=== PATIENT | male | born 1945 | race Hispanic/Latino ===

== ENCOUNTER 2017-07-09 21:22 | Inpatient (IN) | payer MEDICARE ==
[~2017-07-09] VITALS: Ht 180.3 cm; Wt 98.1 kg
[2017-07-09] MEDS ORDERED: BACTRIM DS TAB1 EACH PO (22:37)
[2017-07-09] MEDS ORDERED: GLIPIZIDE5 MG PO (22:37)
[2017-07-09] MEDS ORDERED: CLINDAMYCIN HC150 MG PO (22:37)
[2017-07-09] MEDS ORDERED: METFORMIN HCL500 MG PO (22:37)
[2017-07-09] MEDS ORDERED: CEFAZOLIN SOD 1 GM in WATER STERILE 10ML VIAL 10 ML IV ONE (23:45)
[2017-07-10] VITALS (9 sets, daily range): BP systolic 121–149; BP diastolic 62–79
[2017-07-10] MEDS ORDERED: ACETAMINOPHEN 325 MG TAB PO PRN (00:15)
[2017-07-10] MEDS ORDERED: ACETAMINOPHEN 325 MG TAB PO ONE (00:15)
[2017-07-10] MEDS ORDERED: ONDANSETRON HCL INJ 2 MG/ML VIAL IV PRN (00:15)
[2017-07-10] MEDS: SODIUM CHLORIDE 0.9% 1000ML 1,000 ML IV SCH ×2 (02:32)
[2017-07-10] MEDS: PIPERACILLIN/TAZO 2.25 GM 50 ML IV SCH ×3 (06:08→21:56)
[2017-07-10] MEDS ORDERED: VANCOMYCIN 1GM/NS 250 ML 250 ML IV ONE (09:30)
[2017-07-10 09:55] LABS: BASOPHILS % 0.8 % (0.0-1.0); EOSINOPHILS # (AUTO) 0.2 (0.0-0.4); HEMATOCRIT 33.9 % (38.2-49.6); HEMOGLOBIN 11.3 g/dL (14.0-18.0); LYMPHOCYTES # (AUTO) 1.1 (1.0-3.2); LYMPHOCYTES % 22.8 % (18.0-39.1); MEAN CORPUSCULAR HEMOGLOBIN 29.6 pg (28-32); MEAN CORPUSCULAR HGB CONC 33.3 g/dL (31-35); MEAN CORPUSCULAR VOLUME 88.7 fL (81-99); MONOCYTES # (AUTO) 0.6 (0.2-0.8); MONOCYTES % 12.2 % (4.4-11.3); PLATELET COUNT 156 x10e3/uL (140-360); RED BLOOD COUNT 3.82 x10e6/uL (4.3-5.7); RED CELL DISTRIBUTION WIDTH 13.4 % (11.7-14.4)
[2017-07-10] MEDS ORDERED: LISINOPRIL 10 MG TAB PO SCH (10:00)
[2017-07-10] MEDS ORDERED: LISINOPRIL10 MG PO (10:02)
[2017-07-10 10:10] LABS: ALBUMIN 3.5 g/dL (3.5-5.0); ALBUMIN/GLOBULIN RATIO 1.1 (0.8-2.0); ANION GAP 14.7 mmol/L (8-16); CALCIUM 9.1 mg/dL (8.4-10.2); CREATININE, SERUM 2.29 mg/dL (0.72-1.25)
[2017-07-10 10:11] LABS: POTASSIUM 5.7 mmol/L (3.5-5.1)
--- NOTE | 2017-07-10 10:40 | History and Physical ---
He is a 72-year-old male patient of mine with a history of diabetes mellitus he was told because of noncompliance. Had a fall off a ladder 2 weeks ago, and he stabbed his left lower anterior tibia. The patient was seen in the office. The patient was started on Bactrim and Mupirocin cream. The patient had no significant improvement so clindamycin was added and Mupirocin was changed to Povidine Iodine dressing because of the local infection. That was done 2 days ago. Apparently, the patient did not improve. Then because of the pain came to the emergency room at the [facility] ER. Subsequently, the patient was found to have a high creatinine of 2.7. The patient was admitted. PAST MEDICAL HISTORY: Diabetes mellitus, hypertension. PAST SURGICAL HISTORY: Left ankle surgery and hardware in place, appendectomy. REVIEW OF SYSTEMS: Left lower leg pain. SOCIAL HISTORY: Former smoker. Denies using alcohol. FAMILY HISTORY: Diabetes mellitus. MEDICATIONS: The patient was on glimepiride, metformin, Azactam, and clinda. ALLERGIES: NO KNOWN DRUG ALLERGIES. PHYSICAL EXAMINATION GENERAL: He is an elderly male patient lying in bed. VITALS: Temperature 97, pulse rate 74, blood pressure 140/70, respirations 20. HEENT: Normocephalic and atraumatic. No JVD. No adenopathy. LUNGS: Bilateral equal fair air entry. No rales. No rhonchi. HEART: S1 and S2 regular. No murmurs. No gallops. ABDOMEN: Soft. Bowel sounds are present. NEUROLOGICAL: No focal neurological deficit. EXTREMITIES: On the left lower extremity, the patient has leg ulcer with eschar, surrounding erythema and tenderness. The area is around 5 cm. LABORATORY EXAMINATION: The patient's creatinine was 3.1. Repeat was 2.7, potassium 5.3. CBC normal. X-ray of the left tibia and fibula negative. IMPRESSION AND DIAGNOSES 1. Left lower leg cellulitis. 2. Acute renal failure. 3. Diabetes mellitus. 4. Left lower leg traumatic ulcer, which is infected. PLAN: The patient will be admitted with the above diagnoses. Will give the patient IV fluids and stop Bactrim, clindamycin and metformin for the renal failure. Give the patient IV Zosyn and dose of vancomycin. Will obtain wound culture and get wound care. Will obtain ID and nephrology consultation. Job#: [id number] RI
[2017-07-10] MEDS ORDERED: LACTULOSE SYRUP 20 GM/30 ML UDC PO ONE (14:31)
[2017-07-10] MEDS ORDERED: SOD POLYSTYRENE SULFONATE SUSP 15 GM/60 ML BTL PO ONE (14:31)
[2017-07-10] MEDS ORDERED: ONDANSETRON HCL 4 MG ORAL DISINTEGRATING TAB PO PRN (14:45)
--- NOTE | 2017-07-10 15:16 | Consultation ---
DATE OF CONSULTATION: July 10, 2017 RENAL CONSULT HISTORY OF PRESENT ILLNESS: History predominantly from chart, electronic records. This is a pleasant 72-year-old white gentleman, underlying history of type 2 diabetes, hypertension, who has been admitted with an injury to his left lower extremity. He has had prior left ankle surgery and hardware placement, prior history of appendectomy. He has a history of prior tobacco addiction. FAMILY HISTORY: Strongly positive for diabetes. Patient also claims he has had kidney stones in the remote past. Many years ago he saw a urologist but does not remember the radiologist's name, and no recurrence of kidney stone has been noted. Renal has been consulted because of acute kidney injury. Serum creatinine 2.29, bicarbonate 15, potassium 5.7. CURRENT MEDICATIONS: Include cefazolin, IV normal saline at 125 mL an hour, piperacillin/tazobactam. Acetaminophen p.r.n., glipizide 5 mg b.i.d., lisinopril 10 mg daily, ondansetron p.r.n. Also received 1 dose of vancomycin. SOCIAL HISTORY: Ex-smoker, does not smoke or drink anymore. . FAMILY HISTORY: Significant for diabetes and hypertension. ALLERGIES: NO APPARENT DRUG ALLERGIES. PHYSICAL EXAMINATION: GENERAL: Awake, alert, lying supine. No apparent distress. VITALS: Blood pressure 136/68, pulse rate 80, afebrile, respiratory rate 17. HEAD AND NECK: Cornea clear. Oral mucosa dry. Neck veins flat. LUNGS: Relatively clear. HEART: S1 and S2 audible. ABDOMEN: Otherwise soft, nontender. LOWER EXTREMITY EXAMINATION: Left lower extremity dressing noted, not removed for evaluation. No edema noted. IMPRESSION/PLAN: Hyperkalemia with evidence of distal renal tubular acidosis. Underlying hypertension. Acute kidney injury, etiology unclear, possibly due to chronic kidney disease. Will discontinue lisinopril. Discontinue current IV fluid. Will start IV bicarbonate. Dose with Kayexalate lactulose. Place on a [id number] restricted renal diet. Renal workup ordered. Please see orders. Job#: [id number] EV
[2017-07-10] MEDS: SODIUM BICARBONATE 8.4% SYRING 150 ML in DEXTROSE 5% 1,000 ML IV SCH (15:45)
[2017-07-10 15:59] LABS: BILIRUBIN,URINE NEGATIVE (NEGATIVE); CLARITY,URINE CLEAR (CLEAR); COLOR,URINE YELLOW (YELLOW); KETONES,URINE NEGATIVE (NEGATIVE); LEUKOCYTE ESTERASE ,URINE NEGATIVE (NEGATIVE); NITRITE,URINE NEGATIVE (NEGATIVE); PROTEIN,URINE DIPSTICK 1+ (NEGATIVE); URINE UROBILINOGEN 0.2 mg/dL (0.2 - 1)
[2017-07-10 16:10] LABS: CREATININE,URINE RANDOM 52.47 mg/dL (63-166); TOTAL PROTEIN, URINE 26.9 mg/dL (1-14)
--- NOTE | 2017-07-10 16:10 | Diagnostic Imaging Report ---
PROCEDURE:US RETROPERITONEAL ( KIDNEY ). COMPARISON:None. INDICATIONS:TIMOTHY TECHNIQUE: Andrews-scale and color sonographic images of the bilateral kidneys and bladder where obtained in transverse and longitudinal planes. FINDINGS: RIGHT KIDNEY: 10.7 cm, cortex 1.6 cm Cysts: None Solid masses: None Stones: None Hydronephrosis: None Echogenicity: Normal LEFT KIDNEY: 13.3 cm, cortex 2.0 cm Cysts: None Solid masses: None Stones: None Hydronephrosis: None Echogenicity: Normal Bladder: Unremarkable. Prostate: The prostate gland measures 7.5 x 2.0 x 5.0 cm (55.1 mL). CONCLUSION: Enlarged prostate gland. No hydronephrosis, stones, or solid renal masses. Dictated by: Zeeshan Verduzco M.D. on 07/10/2017 at 16:12 Electronically approved by: Zeeshan Verduzco M.D. on 07/10/2017 at 16:12
[2017-07-10 16:14] LABS: PROTEIN/CREATININE RATIO,URINE 0.51
--- NOTE | 2017-07-10 16:23 | Consultation ---
DATE OF CONSULTATION: July 10, 2017 ATTENDING PHYSICIAN: Dr. Drake Da Silva. REASON FOR CONSULTATION: Cellulitis. Thank you, Dr. Da Silva, for asking me to see this patient. HISTORY OF PRESENT ILLNESS: The patient is a 72-year-old man referred for cellulitis. He presented to the emergency department yesterday with left leg wound, which failed outpatient treatment. The patient fell of a ladder at home and sustained abrasion on the left and right pretibial areas as well as the right wrist. He was evaluated as an outpatient and treated with Bactrim. The right leg and wrist abrasions improved, but the left leg wound got worse. He was therefore teated with clindamycin without improvement. He denies fever, chills, nausea, vomiting, diarrhea, abdominal pain, and dysuria. The patient claimed that outpatient x-ray showed no foreign body or fracture. PAST MEDICAL HISTORY: Diabetes mellitus type 2, hypertension, and hyperlipidemia. PAST SURGICAL HISTORY: Appendectomy, left knee arthroscopic surgery for torn meniscus, and left ankle open reduction and internal fixation. ALLERGIES: NO KNOWN DRUG ALLERGIES. MEDICATIONS: Current antibiotics is Zosyn 2.25 g IV piggyback q.8 hours. Received vancomycin 1 g IV piggyback once and cefazolin 1 g IV piggyback once. IMMUNIZATION: He received pneumococcal vaccination within 10 years. Also, he received pneumococcal vaccination in the past. FAMILY HISTORY: Significant for diabetes mellitus and hypertension in the mother. The father had hypertension and the sister with diabetes mellitus. SOCIAL HISTORY: He quit smoking cigarettes at age 26. No alcohol or tobacco use. REVIEW OF SYSTEMS: As per history of present illness. PHYSICAL EXAMINATION GENERAL: No acute distress. VITAL SIGNS: T-max 98.3, pulse 74, respiratory rate 20, blood pressure 141/67. Weight 216 pounds. HEENT: Normocephalic. There is no icterus or injection of conjunctivae. There is no ear or nasal discharge. Moist oral mucosa. No pharyngeal erythema or exudate. NECK: Supple. No lymphadenopathy. LUNGS: Clear to auscultation bilaterally. HEART: Normal S1 and S2. Regular. ABDOMEN: Soft and nontender. EXTREMITIES: There is a dry scab on the right pretibial area as well as the right wrist. There is no surrounding erythema or redness. There is an abrasion with dry scab on the left pretibial area with surrounding erythema and fluctuance. There is tenderness on palpation. There is no edema, clubbing or cyanosis of the rest of the extremities. Dorsalis pedis and posterior tibial pulses are palpable. SKIN: As per extremities. AMUSEMENT MACHINE MECHANIC: Awake, alert and oriented to person, place and time. There is decreased sensation on monofilament examination of the feet bilaterally. Also, there is decreased vibration and sensation of the feet and ankle. Nonfocal. LABORATORY AND DIAGNOSTICS: WBC 4990, hemoglobin 11.3, platelets 156,000, neutrophils 60, lymphs 22.8, monos 12.2, eosinophils 3, and basophils 0.8. BUN 43, creatinine 2.29, blood glucose 164. AST 15, ALT 14, alk phos 60, and total bilirubin 0.4. IMPRESSION 1. Cellulitis of the left lower extremity. 2. Left pretibial wound, rule out abscess. 3. 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 4. Diabetes mellitus type 2 with peripheral neuropathy, controlled. PLAN 1. Consult surgical service for incision and drainage. 2. Check random vancomycin level. 3. Await nephrology input. Job#: [id number] VAS
[2017-07-10] MEDS ORDERED: SEVOFLURANE INHAL SOLN 250 ML PEN BTL ONE (16:46)
[2017-07-10] MEDS ORDERED: DEXAMETHASONE SOD PHOS INJ 4 MG/ML VIAL ONE (16:46)
[2017-07-10] MEDS ORDERED: ONDANSETRON HCL INJ 2 MG/ML VIAL ONE (16:46)
[2017-07-10] MEDS ORDERED: LIDOCAINE HCL 2% LOCAL INJ 5 ML SDV VIAL INJ ONE (16:46)
[2017-07-10] MEDS ORDERED: PROPOFOL IV EMULSION 10 MG/ML 20 ML VIAL ONE (16:46)
[2017-07-10] MEDS: GLIPIZIDE 5 MG TAB PO SCH (16:53)
--- NOTE | 2017-07-10 19:51 | Consultation ---
DATE OF CONSULTATION: July 10, 2017 CHIEF COMPLAINT: Left leg abrasion. HISTORY OF PRESENT ILLNESS: The patient is a 72-year-old male with history of hypertension and diabetes who fell on a ladder 2 weeks ago with abrasions on the left lower extremity which has not improved despite treatment with antibiotics. He has some burning pain in the area, but denies fever or chills. PAST MEDICAL HISTORY: Significant as mentioned for diabetes and hypertension. PAST SURGICAL HISTORY: Positive for ankle of surgery hardware and appendectomy. ALLERGIES: NO KNOWN DRUG ALLERGIES. SOCIAL HABITS: The patient is a nonsmoker and non-alcohol user. REVIEW OF SYSTEMS: No chest pain. No shortness of breath. PHYSICAL EXAMINATION: VITALS: Signs are stable. He is afebrile . GENERAL: He is awake, alert and in no apparent distress. HEENT: Sclerae anicteric. NECK: Supple. LUNGS: Clear. HEART: Is regular rate and rhythm. ABDOMEN: Soft. Nontender. EXTREMITIES: Revealed an area approximately 4 x 3 cm on the anterior aspect of the left lower extremity overlying the tibia with indurations and tenderness to palpation with a central skin necrosis. No purulent drainage. Pedal pulse present. White cell count is 4.9, hemoglobin 11. Creatinine is 2.3. ASSESSMENT: Left lower extremity, localized soft tissue necrosis and infection. PLAN: Recommend needle aspiration to ascertain that there is no purulent collection; however, the patient states he has been aspirated with nothing found. Will order an ultrasound of the area. Will follow the patient with you. Job#: [id number]
[2017-07-10] MEDS ORDERED: MAGNESIUM HYDROXIDE 30 ML UDC PO PRN (20:15)
[2017-07-10] MEDS: TRAMADOL HCL 50 MG TAB PO PRN (20:42)
[2017-07-11] VITALS (7 sets, daily range): BP systolic 102–138; BP diastolic 54–69
[2017-07-11] MEDS: TRAMADOL HCL 50 MG TAB PO PRN ×2 (02:45→12:03)
[2017-07-11] MEDS: PIPERACILLIN/TAZO 2.25 GM 50 ML IV SCH ×3 (06:08→21:31)
[2017-07-11] MEDS: SODIUM BICARBONATE 8.4% SYRING 150 ML in DEXTROSE 5% 1,000 ML IV SCH ×3 (06:43→20:06)
[2017-07-11 06:44] LABS: BASOPHILS # (AUTO) 0.1 (0.0-0.1); BASOPHILS % 0.8 % (0.0-1.0); EOSINOPHILS # (AUTO) 0.2 (0.0-0.4); EOSINOPHILS % 3.1 % (0.0-6.0); HEMATOCRIT 36.9 % (38.2-49.6); HEMOGLOBIN 12.2 g/dL (14.0-18.0); LYMPHOCYTES # (AUTO) 1.7 (1.0-3.2); LYMPHOCYTES % 25.3 % (18.0-39.1); MEAN CORPUSCULAR HEMOGLOBIN 29.8 pg (28-32); MEAN CORPUSCULAR HGB CONC 33.1 g/dL (31-35); MEAN CORPUSCULAR VOLUME 90.2 fL (81-99); MONOCYTES # (AUTO) 0.6 (0.2-0.8); MONOCYTES % 9.7 % (4.4-11.3); NEUTROPHILS % 60.6 % (38.7-80.0); PLATELET COUNT 194 x10e3/uL (140-360); RED BLOOD COUNT 4.09 x10e6/uL (4.3-5.7); RED CELL DISTRIBUTION WIDTH 13.5 % (11.7-14.4)
[2017-07-11 08:39] LABS: ALBUMIN 3.8 g/dL (3.5-5.0); ALBUMIN/GLOBULIN RATIO 1.1 (0.8-2.0); ANION GAP 13.6 mmol/L (8-16); CALCIUM 9.2 mg/dL (8.4-10.2); CREATININE, SERUM 2.06 mg/dL (0.72-1.25); POTASSIUM 4.6 mmol/L (3.5-5.1)
[2017-07-11] MEDS: GLIPIZIDE 5 MG TAB PO SCH ×2 (09:18→17:41)
--- NOTE | 2017-07-11 19:02 | Diagnostic Imaging Report ---
PROCEDURE:EXTREMITY ULTRASOUND COMPARISON:None. INDICATIONS:LEFT LEG LESION/status post fall from stepladder TECHNIQUE:Transverse and longitudinal images of the left lower leg in area of scar where performed utilizing grayscale and color Doppler modalities. FINDINGS: Examination shows a linear anechoic structure in the subcutaneous tissues of the left lower leg anterior to the tibia, measuring 0.5 cm in greatest width, which does not show any internal or peripheral vascularity. There is surrounding mild soft tissue edema. Otherwise, unremarkable exam.. CONCLUSION: 1. Findings may represent a subcutaneous hematoma, in the setting of trauma. There is associated mild surrounding soft tissue edema. Hiram Barreto M.D. Dictated by: Hiram Barreto M.D. on 07/11/2017 at 19:03 Electronically approved by: Hiram Barreto M.D. on 07/11/2017 at 19:03
[2017-07-12] VITALS (8 sets, daily range): BP systolic 109–155; BP diastolic 67–81
[2017-07-12] MEDS: PIPERACILLIN/TAZO 2.25 GM 50 ML IV SCH ×3 (06:10→21:42)
[2017-07-12 06:56] LABS: BASOPHILS % 0.7 % (0.0-1.0); EOSINOPHILS # (AUTO) 0.2 (0.0-0.4); EOSINOPHILS % 2.8 % (0.0-6.0); HEMATOCRIT 33.7 % (38.2-49.6); HEMOGLOBIN 11.2 g/dL (14.0-18.0); LYMPHOCYTES # (AUTO) 1.1 (1.0-3.2); LYMPHOCYTES % 20.6 % (18.0-39.1); MEAN CORPUSCULAR HEMOGLOBIN 28.8 pg (28-32); MEAN CORPUSCULAR HGB CONC 33.2 g/dL (31-35); MEAN CORPUSCULAR VOLUME 86.6 fL (81-99); MONOCYTES # (AUTO) 0.6 (0.2-0.8); NEUTROPHILS # (AUTO) 3.5 (2.1-6.9); NEUTROPHILS % 64.7 % (38.7-80.0); PLATELET COUNT 171 x10e3/uL (140-360); RED BLOOD COUNT 3.89 x10e6/uL (4.3-5.7)
[2017-07-12 07:14] LABS: ALBUMIN 3.5 g/dL (3.5-5.0); ALBUMIN/GLOBULIN RATIO 1.1 (0.8-2.0); ANION GAP 11.7 mmol/L (8-16); CALCIUM 9.1 mg/dL (8.4-10.2); CREATININE, SERUM 1.44 mg/dL (0.72-1.25); POTASSIUM 4.7 mmol/L (3.5-5.1)
[2017-07-12] MEDS: GLIPIZIDE 5 MG TAB PO SCH ×2 (08:15→19:17)
[2017-07-12] MEDS: DEXTROSE 5%/0.45% SOD CHL 1,000 ML IV SCH ×2 (08:56→21:35)
[2017-07-12] MEDS ORDERED: FENTANYL CITRATE/PF 100MCG/2 ML INJ ONE ×2 (10:33→15:10)
[2017-07-12] MEDS: TRAMADOL HCL 50 MG TAB PO PRN (14:03)
--- NOTE | 2017-07-12 14:27 | Operative Report ---
DATE OF PROCEDURE: July 12, 2017 PREOPERATIVE DIAGNOSIS: Left leg hematoma. POSTOPERATIVE DIAGNOSIS: Left leg hematoma. OPERATIVE PROCEDURE: Debridement and drainage of left leg subcutaneous hematoma. ANESTHESIA: General. INDICATIONS: The patient is a 72-year-old male with a 2-week history of bruise and skin necrosis on the left anterior leg after falling from a ladder. The patient had an ultrasound, which shows subcutaneous hematoma on the left anterior leg, and he has consented for debridement and drainage of the hematoma under anesthesia with all attendant risks discussed. PROCEDURE FINDINGS: Hematoma in the subcutaneous tissue anterior left lower extremity. DESCRIPTION OF PROCEDURE: The patient was brought to the OR and given general anesthesia in the supine position. The anterior left lower extremity is prepped with alcohol and draped in a sterile fashion. Patient has an island of skin necrosis approximately 4 x 2 cm, which was excised using sharp dissection removing full-thickness of skin. The subcutaneous tissue was opened with Metzenbaum scissors entering a large hematoma with blood clots. Approximately, 5 mL removed. All the blood clot is debrided with manual debridement, as well as irrigation with saline. Swab culture was done for culture and sensitivity. The wound is checked for bleeding points. Cautery used for hemostasis. The wound was packed with Iodoform gauze. Dressing applied with 4 x 4 and Kerlix roll. The patient was then awakened from anesthesia and transported to the recovery room. Estimated blood loss 5 mL total with clots. Job#: [id number]
[2017-07-13] VITALS (7 sets, daily range): BP systolic 120–151; BP diastolic 58–72
[2017-07-13] MEDS: PIPERACILLIN/TAZO 2.25 GM 50 ML IV SCH ×3 (05:08→21:45)
[2017-07-13 07:31] LABS: BASOPHILS % 0.5 % (0.0-1.0); EOSINOPHILS # (AUTO) 0.1 (0.0-0.4); EOSINOPHILS % 1.7 % (0.0-6.0); HEMATOCRIT 31.3 % (38.2-49.6); HEMOGLOBIN 10.5 g/dL (14.0-18.0); LYMPHOCYTES # (AUTO) 1.7 (1.0-3.2); LYMPHOCYTES % 26.9 % (18.0-39.1); MEAN CORPUSCULAR HEMOGLOBIN 29.2 pg (28-32); MEAN CORPUSCULAR HGB CONC 33.5 g/dL (31-35); MEAN CORPUSCULAR VOLUME 86.9 fL (81-99); MONOCYTES # (AUTO) 0.7 (0.2-0.8); MONOCYTES % 10.6 % (4.4-11.3); NEUTROPHILS # (AUTO) 3.8 (2.1-6.9); PLATELET COUNT 186 x10e3/uL (140-360); RED CELL DISTRIBUTION WIDTH 12.9 % (11.7-14.4)
[2017-07-13 08:27] LABS: ALBUMIN 3.4 g/dL (3.5-5.0); ALBUMIN/GLOBULIN RATIO 1.1 (0.8-2.0); CALCIUM 8.7 mg/dL (8.4-10.2); CREATININE, SERUM 1.28 mg/dL (0.72-1.25)
[2017-07-13] MEDS: GLIPIZIDE 5 MG TAB PO SCH ×2 (09:04→16:29)
[2017-07-13] MEDS: TRAMADOL HCL 50 MG TAB PO PRN ×2 (13:30)
[2017-07-13] MEDS ORDERED: HYDROCODONE/APAP 7.5MG-325MG 1 EA TAB PO PRN (15:45)
[2017-07-13] MEDS: HYDROCODONE/APAP 7.5MG-325MG 1 EA TAB PO PRN ×2 (16:29→22:30)
[2017-07-13] MEDS ORDERED: SODIUM CHLORIDE 0.9% 250ML 250 ML ONE (21:09)
[2017-07-14 01:06] VITALS: BP 124/68
[2017-07-14 05:43] VITALS: BP 139/77
[2017-07-14] MEDS: PIPERACILLIN/TAZO 2.25 GM 50 ML IV SCH ×3 (06:01→21:30)
[2017-07-14 08:00] VITALS: BP 137/77
[2017-07-14] MEDS: GLIPIZIDE 5 MG TAB PO SCH ×2 (09:00→16:30)
[2017-07-14] MEDS ORDERED: MINOCYCLINE HCL50 MG PO (09:51)
[2017-07-14 12:00] VITALS: BP 165/82
[2017-07-14] MEDS: HYDROCODONE/APAP 7.5MG-325MG 1 EA TAB PO PRN (13:39)
[2017-07-14 16:00] VITALS: BP 143/67
[2017-07-15] MEDS: PIPERACILLIN/TAZO 2.25 GM 50 ML IV SCH (06:10)
[2017-07-15 07:13] LABS: ALBUMIN 3.5 g/dL (3.5-5.0); ALBUMIN/GLOBULIN RATIO 1.1 (0.8-2.0); ANION GAP 12.2 mmol/L (8-16); CALCIUM 9.4 mg/dL (8.4-10.2); CREATININE, SERUM 1.32 mg/dL (0.72-1.25); POTASSIUM 4.2 mmol/L (3.5-5.1)
[2017-07-15 08:00] VITALS: BP 187/97
[2017-07-15] MEDS: GLIPIZIDE 5 MG TAB PO SCH (08:22)
--- NOTE | 2017-07-15 10:49 | Discharge Summary ---
This 72-year-old male patient of mine presented with complaint of left leg wound which was not healing as an outpatient. The patient also had renal failure. ADMITTING IMPRESSION AND DIAGNOSES 1. Left lower leg cellulitis from injury. 2. Acute renal failure. 3. Diabetes mellitus. 4. Hypertension. 5. Hyperlipidemia. HOSPITAL COURSE SUMMARY: The patient was admitted with the above diagnoses. The patient's creatinine had jumped up to 3.1. With IV fluids, changing antibiotics and medications, that improved. The patient was treated with IV antibiotics, vancomycin and Zosyn. ID and surgery consults and nephrology consult were done. The patient had surgical debridement of the wound done by Dr. Overton, and postop wound care was given. The patient had improved significantly with the above treatment. His creatinine had come down to 1.32. Now, upon stabilization, the patient will be discharged home on minocycline 100 mg twice a day for 10 days and Iodosorb gel for the wound care. The patient is able to resume his metformin and lisinopril and continue with the glipizide for his diabetes. The patient will be followed up as an outpatient. We will repeat his lab exam as outpatient. HANSEL ALLAN MD Job#: [id number]
[2017-07-15] MEDS ORDERED: IODOSORB40 GM TOP (11:13)
== END 2017-07-15 11:48 | disposition home or self-care (01) | DRG 573 ==
LOC: FSED 21:22 → MED/SURG2 07-10 01:17
PROVIDERS: ADMIT Internal Medicine; ATTEND Internal Medicine
PROC: 0YBB0ZZ Excision of Left Lower Extremity, Open Approach (ICD-10-PCS; principal; 2017-07-12 10:00)
DX: L03.116 Cellulitis of left lower limb (principal); N17.0 Acute kidney failure with tubular necrosis; N18.4 Chronic kidney disease, stage 4 (severe); E11.22 Type 2 diabetes mellitus with diabetic chronic kidney disease; I12.9 Hypertensive chronic kidney disease with stage 1 through stage 4 chronic kidney disease, or unspecified chronic kidney disease; E87.5 Hyperkalemia; Z87.891 Personal history of nicotine dependence; Z91.19 Patient's noncompliance with other medical treatment and regimen; W11.XXXA Fall on and from ladder, initial encounter; E11.40 Type 2 diabetes mellitus with diabetic neuropathy, unspecified; Z79.4 Long term (current) use of insulin
CPT/HCPCS: 36415; 76770; 76882; 80053; 80202; 81001; 82570; 82948; 83735; 84156; 84550; 85025; 87071; 87075; 87205; 96361; 97139; 99284; J0690; J1100; J2001; J2405; J2543; J3370; J7030; J7050; J7070

== ENCOUNTER 2017-07-19 16:47 | Emergency (ER) | payer MEDICARE ==
[~2017-07-19] VITALS: Ht 180.3 cm; Wt 98.0 kg
[~2017-07-19 16:47] MED LIST: BACTRIM DS TAB1 EACH PO; CLINDAMYCIN HC150 MG PO; GLIPIZIDE5 MG PO; IODOSORB40 GM TOP; LISINOPRIL10 MG PO; METFORMIN HCL500 MG PO; MINOCYCLINE HCL50 MG PO
[2017-07-19 17:20] VITALS: BP 159/77
== END 2017-07-19 17:22 | disposition home or self-care (01) ==
LOC: ER 16:47
DX: R21 Rash and other nonspecific skin eruption (principal); L53.9 Erythematous condition, unspecified; I10 Essential (primary) hypertension; E11.9 Type 2 diabetes mellitus without complications; N18.9 Chronic kidney disease, unspecified
CPT/HCPCS: 99282